=== PATIENT | female | born 1960 | race American Indian/Alaskan Native ===

== ENCOUNTER 2016-12-23 10:31 | Outpatient (CLI) | payer OTHER ==
--- NOTE | 2016-12-23 11:27 | XRay Report ---
LUMBAR SPINE RADIOGRAPHS: INDICATION: Neurogenic pain left leg. COMPARISON: None similar. FINDINGS: AP and lateral lumbar spine radiographs demonstrate mild lumbar dextrocurvature, possibly positional versus scoliosis. Normal vertebral body stature. Mild lower lumbar degenerative spurring and facet arthropathy may be present. Grossly preserved disc heights. Clear visualized lung bases. Intact SI joints. Nonobstructive bowel gas pattern with moderate ascending colon stool. Some extrinsic clothing artifacts. CONCLUSION: No acute lumbar radiographic abnormality, as described. Thank you for the opportunity to participate in this patient's care.
== END 2016-12-23 10:32 | disposition home or self-care (01) ==
LOC: SPVIMAG 10:31
PROVIDERS: ATTEND Internal Medicine
DX: M79.605 Pain in left leg (principal)
CPT/HCPCS: 72100

== ENCOUNTER 2017-07-17 09:40 | Outpatient (CLI) | payer BC ==
--- NOTE | 2017-07-17 16:27 | Mammography Report ---
BILATERAL DIGITAL SCREENING MAMMOGRAM with CAD: 07/17/17 09:40:00 CLINICAL: Routine screening. COMPARISON:07/19/16 FINDINGS: The breasts are heterogeneously dense, which may obscure small masses. No mass, architectural distortion or suspicious calcifications. IMPRESSION: No mammographic evidence of malignancy. BI-RADS CATEGORY: 1 - - Negative RECOMMENDATION: Routine mammographic screening in one year. COMMENT: Patient follow-up letters are generated by our [facility] application.
== END 2017-07-17 09:41 | disposition home or self-care (01) ==
LOC: SPVWC 09:40
PROVIDERS: ATTEND Obstetrics & Gynecology
DX: Z12.31 Encounter for screening mammogram for malignant neoplasm of breast (principal)
CPT/HCPCS: 77067; G0202

== ENCOUNTER 2018-01-28 11:50 | Outpatient (CLI) | payer BC, MEDICARE ==
--- NOTE | 2018-01-28 12:48 | XRay Report ---
CHEST TWO VIEWS: 01/28/18 11:50:00 CLINICAL: Acute bronchitis. COMPARISON: None FINDINGS: Normal heart and pulmonary vasculature. The lungs are normally expanded and clear.The bones and soft tissues are unremarkable. IMPRESSION: Normal chest.
== END 2018-01-28 11:51 | disposition home or self-care (01) ==
LOC: SPVIMAG 11:50
PROVIDERS: ATTEND Internal Medicine
DX: J20.8 Acute bronchitis due to other specified organisms (principal)
CPT/HCPCS: 71046

== ENCOUNTER 2019-07-19 09:10 | Outpatient (CLI) | payer OTHER, MEDICARE ==
--- NOTE | 2019-07-21 11:51 | Mammography Report ---
DIGITAL SCREENING MAMMOGRAM WITH TOMOSYNTHESIS WITH CAD, 07/19/2019 INDICATION: Routine Screening Mammography. SCREENING MAMMOGRAM TECHNIQUE: Digital bilateral 2D and 3D mammography with tomosynthesis was obtained in the craniocau arnie and mediolateral oblique projections. Computer-Aided Detection (CAD) analysis was used for inter pretation of this study. COMPARISON: 07/13/2015 FINDINGS: Breast Density: The breasts are heterogeneously dense, which may obscure small masses. There is no evidence of dominant mass, suspicious calcifications or architectural distortion in eithe r breast. IMPRESSION: No mammographic evidence of malignancy. Follow up recommendation: Routine yearly BI-RADS Category 1: Negative. A "normal" or negative report should not discourage follow up or biopsy of a clinically significant f inding. A written summary of these findings will be mailed to the patient. The patient will be entered into a mammography reporting system which will generate a reminder letter for the patient's next appointmen t at the appropriate interval. The [employer] recommends yearly mammograms starting at age 40 and continuing as l avni as a woman is in good health. Breast MRI is recommended for women with an approximate 20-25% or greater lifetime risk of breast cancer, including women with a strong family history of breast or ova jonny cancer or who have been treated for Hodgkin's disease. Signer Name: Harjinder Johnson MD Signed: 07/21/2019 11:47 AM Workstation Name: [id number]
== END 2019-07-19 09:11 | disposition home or self-care (01) ==
LOC: SPVWC 09:10
PROVIDERS: ATTEND Obstetrics & Gynecology
DX: Z12.31 Encounter for screening mammogram for malignant neoplasm of breast (principal); I10 Essential (primary) hypertension; Z90.710 Acquired absence of both cervix and uterus; M19.90 Unspecified osteoarthritis, unspecified site
CPT/HCPCS: 77063; 77067

== ENCOUNTER 2020-05-17 11:38 | Outpatient (CLI) | payer OTHER, MEDICARE ==
--- NOTE | 2020-05-17 12:30 | XRay Report ---
CHEST 2 VIEWS INDICATION: ABNORMAL FINDING ON CT SCAN R93.89. COMPARISON: 01/28/2018 chest x-ray. No previous CT at this facility. FINDINGS: Support devices: None. Heart: Within normal limits. Lungs/pleura: No acute air space or interstitial disease. No pneumothorax. Additional findings: None. IMPRESSION: Unremarkable chest films. No abnormality appreciated. Signer Name: Russ Woodson Jr, MD Signed: 05/17/2020 12:26 PM Workstation Name: [id number]
== END 2020-05-17 11:39 | disposition home or self-care (01) ==
LOC: SPVIMAG 11:38
PROVIDERS: ATTEND Internal Medicine
DX: R93.89 Abnormal findings on diagnostic imaging of other specified body structures (principal)
CPT/HCPCS: 71046

== ENCOUNTER 2020-07-20 11:44 | Outpatient (CLI) | payer OTHER, MEDICARE ==
--- NOTE | 2020-07-20 18:33 | Mammography Report ---
DIGITAL SCREENING MAMMOGRAM WITH CAD, 07/20/2020 INDICATION: Routine screening mammography. TECHNIQUE: Digital bilateral 2D mammography was obtained in the craniocaudal and mediolateral obliq ue projections. This examination was interpreted with the benefit of Computer-Aided Detection analysi s. COMPARISON: 07/17/2017 FINDINGS: Breast Density: The breasts are heterogeneously dense, which may obscure small masses. There is no evidence of dominant mass, suspicious calcifications or architectural distortion in eithe r breast. No interval change. IMPRESSION: No evidence of malignancy. Follow up recommendation: Routine yearly BI-RADS Category 1: Negative. A "normal" or negative report should not discourage follow up or biopsy of a clinically significant f inding. A written summary of these findings will be mailed to the patient. The patient will be entered into a mammography reporting system which will generate a reminder letter for the patient's next appointmen t at the appropriate interval. The [employer] recommends yearly mammograms starting at age 40 and continuing as l avni as a woman is in good health. Breast MRI is recommended for women with an approximate 20-25% or greater lifetime risk of breast cancer, including women with a strong family history of breast or ova jonny cancer or who have been treated for Hodgkin's disease. Signer Name: Ana Cristina Macedo MD Signed: 07/20/2020 6:28 PM Workstation Name: [id number]
== END 2020-07-20 11:45 | disposition home or self-care (01) ==
LOC: SPVWC 11:44
PROVIDERS: ATTEND Obstetrics & Gynecology
DX: Z12.31 Encounter for screening mammogram for malignant neoplasm of breast (principal)
CPT/HCPCS: 77067